=== PATIENT | female | born 1995 | race Caucasian/White ===

== ENCOUNTER 2018-06-14 23:26 | Emergency (ER) | payer MEDICAID ==
[~2018-06-14] VITALS: Wt 72.7 kg
[~2018-06-14 23:26] MED LIST: PREN1TAB79 PO
[2018-06-15] MEDS ORDERED: ACETAMINOPHEN 500 MG TAB PO STA (01:54)
--- NOTE | 2018-06-15 02:10 | ERD ---
ER Documentation Chief Complaint Chief Complaint BIB SELF, CC: LEFT SIDED ABD. PAIN X 2 WEEKS, 10 WEEKS PREG. HPI This is a 22-year-old female presents emergency department with complaints of left-sided abdominal pain, left-sided pelvic pain that is on and off for about 2 weeks. Stated that she is 10 weeks . LMP: 03/30/2018. LAYNE: January 11, 2019. A0. Denies headache, dizziness, blurred vision, neck pain, stiffness, difficult fungal difficult breathing lying flat, shoulder pain, chest pain, back pain, constipation, diarrhea, trauma, injury, falls, recent travel, recent long travel, recent exposure to any illness, recent antibiotic use in the last 3 months, fever, chills, seizures, difficulty walking, numbness or tingling sensation, calf pain. Past medical history: Denies. Surgical history: x1. Appendectomy in 2010. ROS All systems reviewed and are negative except as per history of present illness. Medications Home Meds Active Scripts Cephalexin* (Keflex*) 500 Mg Capsule, 500 MG PO QID for 5 Days, CAP Prov:VONDA ROMAN F 06/15/18 Vit No.124/Iron/FA ( Vitamin Tablet) 1 Each Tablet, 1 EACH PO DAILY, #30 TAB Prov:PARVEZILABANJOSEAR F 06/15/18 Acetaminophen* (Tylophen*) 500 Mg Capsule, 1 CAP PO Q6H PRN for PAIN AND OR ELEVATED TEMP, #20 CAP Prov:PASILABANJOSEAR F 06/15/18 Reported Medications Vit W-Ca,Fe,FA(<1 mg) ( Vitamins) 1 Each Tablet, 1 EACH PO for 7 Days, TAB 03/11/16 Allergies Allergies: Coded Allergies: No Known Allergy (Unverified , 03/11/16) PMhx/Soc History of Surgery: Yes (, appendix) Anesthesia Reaction: No Hx Neurological Disorder: No Hx Respiratory Disorders: No Hx Cardiac Disorders: No Hx Psychiatric Problems: No Hx Miscellaneous Medical Probl: No Hx Alcohol Use: Yes (Occasionally but not during 06/2018) Hx Substance Use: Yes (Marijuana) Hx Tobacco Use: No Smoking Status: Current some day smoker Physical Exam Vitals Physical Exam Const: No acute distress Head: Atraumatic Eyes: Normal Conjunctiva ENT: Normal External Ears, Nose and Mouth. Neck: Full range of motion. No meningismus. Resp: Clear to auscultation bilaterally Cardio: Regular rate and rhythm, no murmurs Abd: Soft, non tender, non distended. Normal bowel sounds. Negative Lowery sign. Negative Manilla sign (heel jar test). Negative psoas sign. Negative Rovsing sign. No CVA tenderness. Skin: No petechiae or rashes. Color appears normal for ethnicity. Back: No midline or flank tenderness Ext: No cyanosis, or edema Neur: Awake and alert. No neurological deficit. Psych: Normal Mood and Affect Result Diagram: 06/15/1821506/15/18 021 Results 24 hrs Laboratory Tests Test 06/15/18 02:11 06/15/18 02:16 Urine Color YELLOW Urine Clarity SLIGHTLY CLOUDY Urine pH 6.0 Urine Specific [place] 1.025 Urine Ketones 2+ mg/dL Urine Nitrite NEGATIVE mg/dL Urine Bilirubin NEGATIVE mg/dL Urine Urobilinogen 1+ mg/dL Urine Leukocyte Esterase NEGATIVE Delbert/ul Urine Microscopic RBC 18 /HPF Urine Microscopic WBC 14 /HPF Urine Squamous Epithelial Cells MODERATE /HPF Urine Bacteria FEW /HPF Urine Mucus MANY /HPF Urine Hemoglobin 1+ mg/dL Urine Glucose NEGATIVE mg/dL Urine Total Protein 1+ mg/dl White Blood Count 10.4 10^3/ul Red Blood Count 4.58 10^6/ul Hemoglobin 12.6 g/dl Hematocrit 37.6 % Mean Corpuscular Volume 82.1 fl Mean Corpuscular Hemoglobin 27.5 pg Mean Corpuscular Hemoglobin Concent 33.5 g/dl Red Cell Distribution Width 11.8 % Platelet Count 244 10^3/UL Mean Platelet Volume 8.6 fl Immature Granulocytes % 0.900 % Neutrophils % 82.4 % Lymphocytes % 9.7 % Monocytes % 6.7 % Eosinophils % 0.0 % Basophils % 0.3 % Nucleated Red Blood Cells % 0.0 /100WBC Immature Granulocytes # 0.090 10^3/ul Neutrophils # 8.6 10^3/ul Lymphocytes # 1.0 10^3/ul Monocytes # 0.7 10^3/ul Eosinophils # 0.0 10^3/ul Basophils # 0.0 10^3/ul Nucleated Red Blood Cells # 0.0 10^3/ul Sodium Level 134 mmol/L Potassium Level 3.7 mmol/L Chloride Level 97 mmol/L Carbon Dioxide Level 24 mmol/L Anion Gap 13 Blood Urea Nitrogen 8 mg/dl Creatinine 0.48 mg/dl Est Glomerular Filtrat Rate mL/min > 60 mL/min Glucose Level 108 mg/dl Calcium Level 9.7 mg/dl Total Bilirubin 0.4 mg/dl Direct Bilirubin 0.00 mg/dl Indirect Bilirubin 0.4 mg/dl Aspartate Amino Transf (AST/SGOT) 21 IU/L Alanine Aminotransferase (ALT/SGPT) 15 IU/L Alkaline Phosphatase 79 IU/L Total Protein 8.1 g/dl Albumin 4.3 g/dl Globulin 3.80 g/dl Albumin/Globulin Ratio 1.13 Amylase Level 77 U/L Lipase 47 U/L Beta HCG, Quantitative 317103.0 mIU/ml Current Medications Medications Dose Sig/Jerson Start Time Status Last (Trade) Ordered Route PRN Stop Time Admin Dose Reason Admin 500 mg ONCE STAT 06/15/18 DC 06/15/18 Acetaminophen PO 01:54 06/15/18 02:31 (Tylenol 01:56 Tab) Procedures/MDM Diagnostic tests: POC urine : Urinalysis: Reviewed. Culture urine: Sent. HCG quantitative: Reviewed. Type and Rh: O+. OB ultrasound: Single live intrauterine with an estimated gestational age of 9 weeks 5 days based on ultrasound measurement. Possible subchorionic bleed noted above. Blood works: Reviewed. Treatment: Tylenol. Re-evaluation: Denies pain, vaginal bleeding. No CVA tenderness. Ambulatory with Differential diagnosis I have low suspicion for sepsis, ectopic , hemorrhaging Final diagnosis: UTI in . Prescription: Tylenol. vitamins. Follow-up with OB in the next 24-48 hours. Come back here in the emergency department for any new symptoms or any worsening symptoms. All questions and concerns were answered. Patient and family members verbalized understanding and agreed with plan of care. Hemodynamically stable on discharge. Departure Diagnosis: Primary Impression: Pelvic pain affecting Additional Impression: UTI in Condition: Stable Additional Instructions: Follow-up with OB in the next 24-48 hours. Come back here in the emergency department for any new symptoms or any worsening symptoms. VONDA ROMAN Jun 15, 2018 02:10
[2018-06-15] MEDS ORDERED: ACET500C5 PO (04:52)
[2018-06-15] MEDS ORDERED: PREN-93 PO (04:52)
[2018-06-15] MEDS ORDERED: CEPH-443 PO (04:54)
[2018-06-15 05:21] VITALS: BP 100/52; PULSE 87; RESP 16
== END 2018-06-15 05:23 | disposition home or self-care (01) ==
LOC: FTE 23:26
DX: O26.891 Other specified pregnancy related conditions, first trimester (principal); R10.2 Pelvic and perineal pain; O23.41 Unspecified infection of urinary tract in pregnancy, first trimester; O99.331 Smoking (tobacco) complicating pregnancy, first trimester; F17.210 Nicotine dependence, cigarettes, uncomplicated; Z3A.09 9 weeks gestation of pregnancy
CPT/HCPCS: 36415; 76801; 80053; 81001; 82150; 83690; 84702; 85025; 86900; 86901; 87086; Z7502; Z7610